=== PATIENT | female | born 1945 ===

== ENCOUNTER 2016-10-02 17:53 | Outpatient (CLI) | payer MEDICARE, OTHER ==
[2016-10-02 20:32] LABS: ALT (SGPT) 36 U/L (0-55); AST (SGOT) 33 U/L (5-34); Alkaline Phosphatase 58 U/L (40-150); Anion Gap 15 mmol/L (10-20); BUN (Urea Nitrogen) 19 mg/dL (9.8-20.1); Bilirubin, Total 1.4 mg/dL (0.2-1.2); Calc. Creatinine Clearance 0 mL/min (70-130); Calcium 9.4 mg/dL (7.8-10.44); Carbon Dioxide 26 mmol/L (23-31); Chloride 99 mmol/L (98-107); Estimated GFR-MDRD 72; LDL Cholesterol, Calculated 105 mg/dL; Protein, Total 6.5 g/dL (5.8-8.1)
[2016-10-02 20:48] LABS: #Lymphocytes 0.7 thou/uL (1.20-3.40); #Monocytes 0.4 thou/uL (0.11-0.59); #Neutrophils 2.4 thou/uL (1.40-6.50); %Basophils 0.5 % (0.0-1.0); %Lymphocytes 20.9 % (21.0-51.0); %Monocytes 10.4 % (0.0-10.0); Hematocrit 41.6 % (36.0-47.0); Mean Platelet Volume 6.7 fL (7.4-10.4); Red Blood Cell (RBC) Count 4.89 mill/uL (4.20-5.40); White Blood Cell (WBC) Count 3.5 thou/uL (4.8-10.8)
== END 2016-10-02 17:54 | disposition home or self-care (01) ==
LOC: NAV SJFMSP 17:53
PROVIDERS: ATTEND Family Medicine
DX: I10 Essential (primary) hypertension (principal); E78.5 Hyperlipidemia, unspecified
CPT/HCPCS: 80053; 80061; 84439; 84443; 85025